=== PATIENT | male | born 1995 | race Caucasian/White ===

== ENCOUNTER 2017-10-07 14:29 | Emergency (ER) | payer SELFPAY ==
[~2017-10-07] VITALS: Ht 172.7 cm; Wt 57.1 kg
[~2017-10-07 14:29] MED LIST: INDOCIN25 MG PO; PEN-VEE K,VEET500 MG PO; ULTRACET1 TABLET PO
[2017-10-07] MEDS ORDERED: PEN-VEE K,VEET500 MG PO (16:23)
[2017-10-07] MEDS ORDERED: NAPROSYN500 MG PO (16:23)
[2017-10-07 16:58] VITALS: BP 146/95
== END 2017-10-07 17:00 | disposition home or self-care (01) ==
LOC: EME 14:29
DX: K04.7 Periapical abscess without sinus (principal); K02.9 Dental caries, unspecified; F17.200 Nicotine dependence, unspecified, uncomplicated
CPT/HCPCS: 99281; 99283